=== PATIENT | female | born 1955 | race Caucasian/White ===

== ENCOUNTER → 2023-11-21 17:05 | Outpatient (REF) | payer OTHER, SELFPAY ==
[2023-11-21 19:52] LABS: % Basophils 0.7 % (0-2); % Eosinophils 4.4 % (0-6); % Immature Granulocytes 0.3 % (0-0.5); % Lymphocytes 45.3 % (20.5-51.1); % Monocytes 7.7 % (1.7-9.3); % Neutrophils 41.6 % (42.2-75.2); Absolute Eosinophils 0.3 10^3/uL (0-0.7); Absolute Lymphocytes 2.7 10^3/uL (1.2-3.4); Absolute Monocytes 0.5 10^3/uL (0.1-0.6); Absolute Neutrophils 2.4 10^3/uL (1.4-6.5); Hematocrit 37.9 % (37.0-47.0); Hemoglobin 12.6 g/dL (12.0-16.0); Mean Corp Hgb Conc. 33.2 g/dL (33.0-37.0); Mean Corpuscular Volume 93.3 fL (81.0-99.0); Mean Platelet Volume 9.8 fL (7.4-10.4); Nucleated Red Blood Cells % 0 %; Platelet Count 318 10^3/uL (130-400); Red Blood Cell Count 4.06 10^6/uL (4.20-5.40); Red Cell Dist. Width 12.5 % (11.5-14.5); White Blood Cell Count 5.9 10^3/uL (4.8-10.8)
[2023-11-21 20:00] LABS: ALT (SGPT) 23 U/L (0-35); AST (SGOT) 31 U/L (14-36); Albumin 4.3 g/dl (3.5-5.0); Alkaline Phosphatase 63 U/L (38-126); Blood Urea Nitrogen 15 mg/dl (7-17); Carbon Dioxide 26 mmol/L (22-30); Chloride 106 mmol/L (98-107); Glucose 91 mg/dl (70-99); HDL Cholesterol 75 mg/dl; LDL Cholesterol, Calculated 166 mg/dl; Potassium 5.9 mmol/L (3.5-5.1); Sodium 136 mmol/L (135-145); Total Bilirubin 0.7 mg/dl (0.2-1.3); Total Cholesterol 262 mg/dl (50-199); Total Protein 7.1 g/dl (6.3-8.2); Triglyceride 108 mg/dl (10-149); Very Low Density Lipoprotein 21 mg/dl (0-30); eGFR > 60.00
[2023-11-21 20:31] LABS: TSH 2.03 uIU/ml (0.47-4.68)
[2023-11-22 09:26] LABS: Glycohemoglobin (HgbA1c) 5.6 % (4.0-5.6)
== END ==
LOC: CLAB 17:05
PROVIDERS: ATTENDING PHYSICIAN Family Medicine
DX: Z00.00 Encounter for general adult medical examination without abnormal findings (principal)
CPT/HCPCS: 36415; 80053; 80061; 83036; 84443; 85025

== ENCOUNTER → 2023-12-16 11:10 | Outpatient (REF) | payer OTHER, SELFPAY ==
[2023-12-16 12:12] LABS: Blood Urea Nitrogen 15 mg/dl (7-17); Calcium 9.6 mg/dl (8.4-10.2); Carbon Dioxide 26 mmol/L (22-30); Chloride 107 mmol/L (98-107); Glucose 96 mg/dl (70-99); Potassium 4.7 mmol/L (3.5-5.1); Sodium 138 mmol/L (135-145); eGFR > 60.00
== END ==
LOC: REG 11:10
PROVIDERS: ATTENDING PHYSICIAN Family Medicine
DX: E87.5 Hyperkalemia (principal)
CPT/HCPCS: 36415; 80048

== ENCOUNTER → 2024-03-12 10:39 | Outpatient (REF) | payer OTHER, SELFPAY ==
[2024-03-12 12:21] LABS: ALT (SGPT) 23 U/L (0-35); AST (SGOT) 31 U/L (14-36); Albumin 4.4 g/dl (3.5-5.0); Alkaline Phosphatase 57 U/L (38-126); Blood Urea Nitrogen 12 mg/dl (7-17); Calcium 9.4 mg/dl (8.4-10.2); Carbon Dioxide 23 mmol/L (22-30); Chloride 107 mmol/L (98-107); Glucose 97 mg/dl (70-99); HDL Cholesterol 65 mg/dl; LDL Cholesterol, Calculated 89 mg/dl; Potassium 4.7 mmol/L (3.5-5.1); Sodium 140 mmol/L (135-145); Total Bilirubin 0.5 mg/dl (0.2-1.3); Total Cholesterol 174 mg/dl (50-199); Total Protein 7.2 g/dl (6.3-8.2); Triglyceride 101 mg/dl (10-149); Very Low Density Lipoprotein 20 mg/dl (0-30); eGFR > 60.00
== END ==
LOC: REG 10:39
PROVIDERS: ATTENDING PHYSICIAN Family Medicine
DX: E78.2 Mixed hyperlipidemia (principal)
CPT/HCPCS: 36415; 80053; 80061

== ENCOUNTER 2024-10-13 18:07 | Emergency (ER) | payer OTHER, SELFPAY ==
[2024-10-13 18:09] VITALS: BP 143/82
[2024-10-13 19:58] VITALS: BMI 30.9
--- NOTE | 2024-10-13 20:27 | ED.SKININJ ---
HPI-Injury
General
Chief Complaint: Skin Surface Trauma
Source: patient
Exam Limitations: none
Time Seen by Provider: 10/13/24 20:04
History of Present Illness-Injury
Initial Injury comments:
69-year-old female with laceration to left hand sustained today. She was using a knife and slipped and cut her hand. Last tetanus unknown. She denies numbness or tingling or loss of function. No other complaints
Past History
Past History
ED Past Medical History: Cancer and Psychiatric
ED Past Surgical History: and Other
Social History
Tobacco: Non-smoker
Alcohol: None
Drug: None
Personal:
Living: with family
Phy Exam
Physical Exam
Physical Exam:
General: Well-appearing female no acute respiratory distress skin: 1 cm laceration webspace between left index and thumb
. No current bleeding or muscle or tendon involvement.
Musculoskeletal exam: Full range of motion left thumb and fingers
Neurologic exam: Good sensation left hand
Course
Orders/Labs/Results
Orders:
Orders
10/13/24 20:27
Tetanus/Diphth/Acelpertussis [Adacel] 0.5 ml IM .ONCE ONE
Vital Signs
Initial and Last Documented VS:
Initial Vital Signs
Temp Pulse Resp BP Pulse Ox
98 F 94 16 143/82 99
10/13/24 18:09 10/13/24 18:09 10/13/24 18:09 10/13/24 18:09 10/13/24 18:09
Last Documented Vital Signs
Temp Pulse Resp BP Pulse Ox
98 F 94 16 143/82 99
10/13/24 18:09 10/13/24 18:09 10/13/24 18:09 10/13/24 18:09 10/13/24 18:09
MDM/Problems Addressed
Differential Diagnosis Includes:
Laceration webspace between left thumb and index finger. This opens up quite a bit when she opens her fingers. Recommend suture closure
The wound was copiously irrigated with saline anesthetized with 1% lidocaine in a local fashion. 5-0 Prolene sutures were then used to close the wound in a simple interrupted fashion. 2 sutures were required to do so. A dressing was applied.
Tetanus vaccine updated. Wound care instructions given stable for discharge
*Critical Care Note
Total Time (30-74mins, 75-104mins- exclusive of procedures): Not Applicable
ED Attending Note
-
Portions of this chart may have been created with voice recognition software.� Occasional wrong word or��sound alike� substitutions may have occurred due to the inherent limitations of voice recognition software.
Discharge Plan
Departure
Patient Disposition: Home (Routine Discharge)
Date of Disposition: 10/13/24
Time of Disposition: 20:29
Patient with high blood pressure during this ER visit?: No
Discharge Problem:
Laceration
Instructions: Laceration Repair With Stitches (DC)
Prescriptions:
No Action
calcium carbonate-vitamin D3 1 UDTAB tablet
1 udtab PO DAILY
bupropion HCl 300 MG tablet extended release 24 hr
300 mg PO DAILY
ex-wxz-NT-Ay-Gt-ertfjim-lutein 1 EACH tablet
1 tab PO DAILY
Vitamin C
1 tab PO DAILY
Vitamin E
1 cap PO DAILY
flaxseed oil 1,000 MG capsule
1,000 mg PO DAILY
docosahexaenoic acid-epa 1 CAP capsule
1 cap PO DAILY
Referrals:
Zulay Gatica MD [Family Provider] -
Activity Restrictions/Additional Instructions:
Keep clean. The sutures will need to be removed in 10 to 12 days. Return if needed otherwise
Interventions
Interventions:
*Risk Screen - Suicide Last Done: 10/13/24 18:09
*General Assessment Last Done: 10/13/24 19:58
*Neglect/Abuse Screening Last Done: 10/13/24 18:09
ED- Fall Risk Assessment Last Done: 10/13/24 19:58
*ED COVID-19 Vaccine History Last Done: 10/13/24 19:58
ED-Skin Assessment Last Done: 10/13/24 19:58
Discharge Date and Time
Print Language: [id number]
[2024-10-13] MEDS: ADACEL 0.5 ML IM (20:35)
[2024-10-13 20:41] VITALS: BP 122/78
== END 2024-10-13 20:45 | disposition home or self-care (01) ==
LOC: EMR 18:07
PROVIDERS: EMERGENCY PHYSICIAN Emergency Medicine; FAMILY PHYSICIAN Family Medicine
DX: S61.412A Laceration without foreign body of left hand, initial encounter (principal); W26.0XXA Contact with knife, initial encounter; Z23 Encounter for immunization
CPT/HCPCS: 90471; 12001; 99282; 90715

== ENCOUNTER → 2025-03-28 09:22 | Outpatient (REF) | payer OTHER, SELFPAY ==
[2025-03-28 10:05] LABS: Hematocrit 38.9 % (37.0-47.0); Hemoglobin 12.7 g/dL (12.0-16.0); Mean Corp Hgb Conc. 32.6 g/dL (33.0-37.0); Mean Corpuscular Volume 91.5 fL (81.0-99.0); Nucleated Red Blood Cells % 0 %; Platelet Count 264 10^3/uL (130-400); Red Cell Dist. Width 12.6 % (11.5-14.5)
[2025-03-28 10:24] LABS: Glycohemoglobin (HgbA1c) 5.5 % (4.0-5.6)
[2025-03-28 13:02] LABS: ALT (SGPT) 27 U/L (0-35); AST (SGOT) 49 U/L (14-36); Albumin 4.4 g/dl (3.5-5.0); Alkaline Phosphatase 52 U/L (38-126); Blood Urea Nitrogen 12 mg/dl (7-17); Calcium 9.3 mg/dl (8.4-10.2); Carbon Dioxide 28 mmol/L (22-30); Chloride 106 mmol/L (98-107); Glucose 102 mg/dl (70-99); HDL Cholesterol 66 mg/dl; LDL Cholesterol, Calculated 93 mg/dl; Potassium 4.6 mmol/L (3.5-5.1); Sodium 141 mmol/L (135-145); Total Protein 7.1 g/dl (6.3-8.2); Very Low Density Lipoprotein 17 mg/dl (0-30); eGFR > 60.00
[2025-03-28 14:41] LABS: TSH 2.20 uIU/ml (0.47-4.68)
== END ==
LOC: REG 09:22
PROVIDERS: ATTENDING PHYSICIAN Family Medicine
DX: E78.2 Mixed hyperlipidemia (principal); R79.89 Other specified abnormal findings of blood chemistry; Z00.00 Encounter for general adult medical examination without abnormal findings
CPT/HCPCS: 36415; 80053; 80061; 83036; 84443; 85025

== ENCOUNTER → 2025-04-19 11:43 | Outpatient (REF) | payer OTHER, SELFPAY ==
[2025-04-19 14:05] LABS: ALT (SGPT) 25 U/L (0-35); AST (SGOT) 32 U/L (14-36); Albumin 4.5 g/dl (3.5-5.0); Alkaline Phosphatase 52 U/L (38-126); Total Protein 7.3 g/dl (6.3-8.2)
== END ==
LOC: REG 11:43
PROVIDERS: ATTENDING PHYSICIAN Family Medicine
DX: R74.8 Abnormal levels of other serum enzymes (principal)
CPT/HCPCS: 36415; 80076

== ENCOUNTER → 2025-05-01 09:17 | Outpatient (REF) | payer OTHER, SELFPAY | LOC: HWRAD 09:17 | PROVIDERS: ATTENDING PHYSICIAN Family Medicine | DX: R74.8 Abnormal levels of other serum enzymes (principal) | CPT/HCPCS: 76700 ==

== ENCOUNTER → 2025-05-10 13:52 | Outpatient (REF) | payer OTHER, SELFPAY | LOC: WDC 13:52 | PROVIDERS: ATTENDING PHYSICIAN Obstetrics & Gynecology Gynecology; FAMILY PHYSICIAN Family Medicine | DX: Z12.31 Encounter for screening mammogram for malignant neoplasm of breast (principal) | CPT/HCPCS: 77063; 77067 ==